=== PATIENT | female | born 1970 | race Caucasian/White ===

== ENCOUNTER 2021-04-01 00:35 | Emergency (ER) | payer BC ==
[~2021-04-01] VITALS: Ht 152.4 cm; Wt 72.6 kg
[2021-04-01] MEDS ORDERED: CEPHALEXIN500 MG PO (06:24)
[2021-04-01] MEDS ORDERED: ZOFRAN8 MG PO (06:24)
[2021-04-01] MEDS ORDERED: PEPCID40 MG PO (06:24)
== END 2021-04-01 06:30 ==
LOC: ER 00:35
DX: K29.60 Other gastritis without bleeding (principal); N39.0 Urinary tract infection, site not specified; R10.13 Epigastric pain